=== PATIENT | female | born 1960 | race African-American/Black ===

== ENCOUNTER 2017-01-28 16:15 | Observation (INO) ==
[2017-01-28] MEDS ORDERED: ONDANSETRON 4 MG/2 ML VIAL IV STA ×3 (16:39→19:03)
[2017-01-28] MEDS ORDERED: hydrALAZINE 20 MG/1 ML VIAL IV STA ×2 (16:39→19:03)
[2017-01-28] MEDS ORDERED: MORPHINE 2 MG/1 ML SYRINGE IV STA ×2 (16:39→19:03)
[2017-01-28] MEDS ORDERED: ONDANSETRON 4 MG/2 ML VIAL ONE ×3 (16:42→19:26)
[2017-01-28] MEDS ORDERED: MORPHINE 2 MG/1 ML SYRINGE ONE (16:42)
[2017-01-28] MEDS ORDERED: hydrALAZINE 20 MG/1 ML VIAL ONE ×2 (16:55→19:21)
--- NOTE | 2017-01-28 17:04 | Emergency Department Note ---
Brooklynn Wei Brittany, am scribing for, and in the presence of, Lidya Morrissey DO 16: 47. IGhanshyam Debra, DO, personally performed the services described in this documentation, ascribed by Kaylyn Overton in my presence, and it is both accurate and complete [id number] . Arrival - Arrival Chief Complaint: Headache Stated Complaint: HEADACHE X 3 DAYS. VOMITING AND DIZZY ED Nursing Triage Note: Pt c/o JARQUIN x 3 days with Nausea and Dizziness. States that moving around makes the JARQUIN worse. Pt states she is not currently taking HTN medications. Mode of Arrival: Wheelchair Limitations: No Limitations Source: Patient Time Seen by Provider: 01/28/17 16:27 - History of Present Illness HPI Narrative: This is a 56 y/o obese black female,who presents to the ED with c/o dizziness and JARQUIN which started 3 days ago. She reports vomiting which started today. She reports she has a PMHx of IDDM. Pt reports she has not checked her BS in the past week, but took her insulin yesterday. She states she has HTN as well, but is not currently taking her BP at home or taking any medications for the HTN. Pt also complains of abd tenderness. PT has no other complaints/pain in the ED at this time. Pt has a PMHx of IDDM and HTN. Pt has had a hysterectomy and cholecystectomy. Pt denies a family medical Hx. Pt denies a social Hx. Onset (ago): day(s) (Started 3 days ago) Consistency: constant Severity: moderate Allergies/Adverse Reactions: Allergies Allergy/AdvReac Type Severity Reaction Status Date / Time No Known Allergies Allergy Unverified 05/18/15 18:08 Home Medications: Home Medications Medication Instructions Recorded Confirmed Type Insulin Aspart [NovoLOG FlexPen] 4 unit SUBCUT TID 01/28/17 01/28/17 History Insulin Glargine,Hum.rec.anlog 60 unit SUBCUT BID 01/28/17 01/28/17 History [Lantus SoloStar] Review of System - Review of System 12 point system: reviewed and no additional remarkable complaints except as stated - Review of System Gastrointestinal: Present: abdominal pain, nausea, vomiting Neurological: Present: headache, vertigo (Dizziness) Medical,Surgical,& Family Hx - Medical History Cardio: History of: Hypertension Endocrine: History of: Diabetes Mellitus (IDDM) - Surgical History Abdominal Surgeries: Surgical HX of: Cholecystectomy Reproductive Surgeries: Surgical HX of;: Hysterectomy - Social History Smoking Status: Never smoker Exam Vital Signs: Vital Signs Temperature 97.7 F 01/28/17 16:30 Pulse Rate 84 01/28/17 18:10 Respiratory Rate 18 01/28/17 18:10 Blood Pressure 175/74 01/28/17 18:10 O2 Sat by Pulse Oximetry 100 01/28/17 16:30 - General General appearance: alert, in no apparent distress, obese - Head Head exam: Present: atraumatic, normocephalic, normal inspection - Eye Eye exam: Present: PERRL, EOMI, other (Pt's eyes are erythemous) - ENT ENT exam: Present: normal exam, normal oropharynx, mucous membranes moist - Neck Neck exam: Present: normal inspection, full ROM, trachea midline. Absent: tenderness, meningismus, lymphadenopathy, thyromegaly - Chest Chest inspection: Present: normal inspection, symmetric chest wall rise. Absent : tenderness, rash, abscess - Respiratory Respiratory exam: Present: normal lung sounds bilaterally. Absent: rales, respiratory distress, rhonchi, stridor, wheezes - Cardiovascular Cardiovascular exam: Present: regular rate, normal rhythm, normal heart sounds. Absent: murmur, rubs, gallop, clicks - Abdominal Exam Abdominal exam: Present: soft, tenderness (Mild diffuse abdomen tenderness), normal bowel sounds, other (Emesis noted to pt's shirt). Absent: distention, guarding, rebound, rigidity - Rectal Exam Rectal exam: Present: deferred - Extremities Exam Extremities exam: Present: full ROM (+1 Pitting Edema), normal capillary refill , pedal edema. Absent: tenderness, joint swelling, calf tenderness - Back Exam Back exam: Present: normal inspection, full ROM. Absent: tenderness, muscle spasm, rashes - Neurological Exam Neurological exam: Present: alert, oriented X3, CN II-XII intact. Absent: motor sensory deficit - Psychiatric Psychiatric exam: Present: normal affect, normal mood. Absent: depressed, agitated, anxious, flat affect, manic - Skin Skin exam: Present: warm, dry, intact, normal color. Absent: rash, cyanosis, diaphoresis, erythema, pallor, mottled Course Course Narrative: spoke with DR Mendes who will admit pt . for uncontrolled htn. pt had several episodes of nausea and headache rebound while in room. pt amenable to admission Results - Labs CBC & BMP: 01/28/17 16:45 01/28/17 16:45 Lab Results: I have reviewed the patients labs - EKG EKG results: interpreted by PEYTON, JOONL, sinus rhythm - Diagnostic Findings Procedure: Chest x-ray: report reviewed by me (Minimal atelectassi at the lung bases with overalpping soft tissue densitites. ), CT: report reviewed by me (CT brain without contrast: No acute intracranial abnormality is identified. Emptying sella with bilateral proptosis which can be assoicated with idiopathic intracranial hypertension. ) Disposition Clinical Impression: Headache, Uncontrolled hypertension Case discussed with: patient Disposition: Still a Patient Condition: Stable Time of Disposition: 19:08
[2017-01-28 17:05] LABS: Basophils % 0.4 % (0.0-0.8); Eosinophils # 0.1 10*3/uL (0.0-0.87); Eosinophils % 1.3 % (0.00-10.9); Hematocrit 39.5 VOL% (35.7-47.0); Hemoglobin 12.6 GM/DL (12.0-16.0); Immature Granulocytes % 0.4 %; Immature Granulocytes Absolute 0.02 #; Lymphocytes # 1.8 10*3/uL (1.4-4.0); Lymphocytes % 32.5 % (21.3-54.2); Mean Corpuscular HGB Conc 31.9 GM/DL (32-36); Mean Corpuscular Hemoglobin 23 PG (27-34); Mean Corpuscular Volume 72.6 FL (87-102); Mean Platelet Volume 11.2 FL (9.6-12.0); Monocytes # 0.4 10*3/uL (0.11-0.8); Monocytes % 7.4 % (1.7-12.7); Neutrophils # 3.2 10*3/uL (1.4-7.4); Platelet Count 277 T/CUMM (130-400); Red Blood Count 5.44 MC/CUMM (3.8-5.5); Red Cell Distribution Width 14.3 % (9.3-17.3); White Blood Count 5.4 T/CUMM (4-12)
--- NOTE | 2017-01-28 17:23 | CT Report ---
Referring physician: Lidya Morrissey DO Exam: CT brain without contrast Date: 01/28/2017 Comparison: None Reason: Headache Technique: Axial images of the head were obtained without the use of contrast. Total DLP was 1073.10 mGy*cm. Findings: No hydrocephalus or midline shift is present. There is no evidence of an acute infarction, recent intracranial hemorrhage or abnormal mass effect. Empty sella. The osseous structures appear intact. The mastoid air cells and visualized paranasal sinuses are clear. Bilateral proptosis. Impression: No acute intracranial abnormality is identified. Emptying sella with bilateral proptosis which can be associated with idiopathic intracranial hypertension. The CT exam was performed using one or more of the following dose reduction techniques: Automated exposure control and adjustment of the mA and/or kV according to patient size. PROCEDURE INTERPRETED AT [facility] DEPARTMENT OF RADIOLOGY Final Report Signed by: Dr. Carolina Bales
--- NOTE | 2017-01-28 17:24 | XRay Report ---
Portable chest Date: 01/28/2017 Clinical history: Shortness of breath Comparison: 06/21/2015 Technique: Portable AP sitting chest Findings: The heart is normal in size. Minimal atelectasis at the lung bases. Overlapping soft tissues with artifactual densities from the patient's clothing. Unremarkable mediastinum with degenerative changes. Impression: Minimal atelectasis at the lung bases with overlapping soft tissue densities. PROCEDURE INTERPRETED AT [facility] DEPARTMENT OF RADIOLOGY Final Report Signed by: Dr. Carolina Bales
[2017-01-28 17:26] LABS: Alanine Aminotransferase 31 U/L (13-56); Albumin 2.9 G/DL (3.4-5.0); Alkaline Phosphatase 100 U/L (45-117); Aspartate Amino Transferase 21 U/L (0-37); Blood Urea Nitrogen 7 MG/DL (7-18); Calcium 9.1 MG/DL (8.5-10.1); Glucose 132 MG/DL (74-106); Osmolality,Calculated 276.5 MOS/KG (273-304); Potassium 3.4 MMOL/L (3.5-5.1); Sodium 139 MMOL/L (136-145); Total Protein 7.8 G/DL (6.4-8.3); Troponin I Only < 0.015 NG/ML (0.00-0.045)
[2017-01-28] MEDS ORDERED: HYDROmorphone 2 MG/1 ML VIAL IV STA (17:29)
[2017-01-28] MEDS ORDERED: HYDROmorphone 2 MG/1 ML VIAL ONE (17:36)
[2017-01-28] MEDS ORDERED: cloNIDine 0.1 MG TABLET PO STA ×2 (18:15→18:18)
[2017-01-28] MEDS ORDERED: cloNIDine 0.1 MG TABLET ONE (18:18)
[2017-01-28] MEDS ORDERED: DEXTROSE 50% 25 GM/50 ML VIAL IV PRN (19:12)
[2017-01-28] MEDS ORDERED: ONDANSETRON 4 MG/2 ML VIAL IV PRN (19:12)
[2017-01-28] MEDS ORDERED: GLUCAGON 1 MG VIAL IM PRN (19:12)
[2017-01-28] MEDS ORDERED: ACETAMINOPHEN 325 MG TABLET PO PRN (19:12)
[2017-01-28] MEDS ORDERED: MORPHINE 2 MG/1 ML SYRINGE IV PRN (19:12)
[2017-01-28] MEDS ORDERED: SODIUM CHLORIDE 0.9% 1,000 ML IV SCH (19:30)
[2017-01-28] MEDS ORDERED: PROMETHAZINE 25 MG/1 ML VIAL ONE (20:28)
[2017-01-28] MEDS ORDERED: SODIUM CHLORIDE 0.9% IV ONE (20:33)
[2017-01-28] MEDS ORDERED: PROMETHAZINE IV ONE (20:33)
[2017-01-28] MEDS ORDERED: INSULIN REGULAR 100 UNIT/ML SUBCUT SCH (21:00)
[2017-01-28] MEDS ORDERED: hydrALAZINE 20 MG/1 ML VIAL IM PRN (21:30)
[2017-01-28] MEDS ORDERED: KETOROLAC 15 MG/1 ML VIAL IV PRN (21:33)
--- NOTE | 2017-01-28 22:18 | XRay Report ---
Exam: XR KUB Date: 01/28/2017 9:28 PM Comparison: None Indication: Generalized abdominal pain with possible SBO Technique:[Supine abdomen] Findings: Nonobstructive bowel gas pattern. Increased fecal material. Prior cholecystectomy. Relative elevation of the right hemidiaphragm. Postoperative findings of the pelvis with degenerative changes. Impression: Nonobstructive bowel gas pattern. Increased fecal material consistent with constipation. Prior cholecystectomy. PROCEDURE INTERPRETED AT [facility] DEPARTMENT OF RADIOLOGY Final Report Signed by: Dr. Carolina Bales
[2017-01-28] MEDS: SODIUM CHLORIDE 0.9% 1,000 ML IV SCH (23:04)
[2017-01-29] MEDS: DOCUSATE SODIUM 100 MG CAPSULE PO SCH ×3 (01:08→22:00)
[2017-01-29] MEDS: LISINOPRIL 10 MG TABLET PO SCH ×3 (01:08→21:56)
[2017-01-29] MEDS: cloNIDine 0.1 MG TABLET PO SCH ×3 (01:47→21:56)
[2017-01-29] MEDS: INSULIN REGULAR 100 UNIT/ML SUBCUT SCH ×4 (01:48→21:55)
--- NOTE | 2017-01-29 08:12 | EKG Report ---
Stationary ECG Study [facility] Test Date: 01/28/2017 5:45:58 PM Pat Name: RAMON GONCALVES Department: Room: 545 Gender: F Chief Science Officer: HARSH : 1960 Requested by: Lidya Morrissey Order Number: [id number] Reading MD: HARSHAD ARMSTRONG Intervals [place] Rate: 95 P: 79 [place]: 163 QRS: 67 QRSD: 78 T: 30 QT: 359 QTc: 411 Interpretive Statements SINUS RHYTHM NONSPECIFIC T-WAVE ABNORMALITY Electronically Signed On 02-03-17 10:38:36 CDT by HARSHAD ARMSTRONG [email or web address]
[2017-01-29] MEDS: PANTOPRAZOLE 40 MG TABLET PO SCH (08:52)
[2017-01-29] MEDS ORDERED: INSULIN LISPRO 100 UNIT/ML SUBCUT SCH (09:00)
--- NOTE | 2017-01-29 09:04 | Internal Med History&Physical ---
Assessment and Plan (1) Uncontrolled hypertension Status: Acute Assessment and plan: 56-year-old female admitted to acute care * Uncontrolled hypertension. This is partly secondary to not taking her medications on regular basis. She has been taking nonsteroidals for headaches. Will start her back on her medications. Will add medications as needed * Headaches. Probably related to the uncontrolled hypertension. Differential diagnosis include tension headaches versus migraines. It is mainly on the left side of the head. It is associated with some vision changes. She has history of diabetic retinopathy. Will consult ophthalmology. Will also consult neurology to evaluate. Will start her on Elavil * Diabetes. Will continue her on insulin. Will start her on a sliding scale * GERD. Will start her on Protonix * Discussed with patient and her mother. Current Visit: Yes (2) Diabetes Status: Acute Current Visit: Yes (3) GERD (gastroesophageal reflux disease) Status: Acute Current Visit: Yes (4) Vomiting Status: Acute Current Visit: Yes (5) Headache Status: Acute Current Visit: Yes History of Present Illness Chief complaint: Headaches for several days associated with nausea and vomiting History of present illness: Ms. Paris is a 56 year old female with history of multiple medical problems including essential hypertension, diabetes, obesity, depression, obstructive sleep apnea. She presented with a several day history of headaches which is mainly on the left side of the head going into her episcopal region. This is associated with nausea and vomiting. She has been taking some Aleve and over- the-counter nonsteroidals for headaches. He denies any chest pain or shortness of breath. She denies any diarrhea. Her blood pressure was found to be quite elevated in the emergency room. She was not taking her blood pressure medications. He was evaluated with a CT brain and x-rays which was negative. Patient has been admitted for further evaluation and treatment. She has been noncompliant with her medications including blood pressure medicines and metformin. She lives at home with her . She used to smoke in the past. Home Medications Medication Instructions Recorded Confirmed Type Insulin Aspart [NovoLOG FlexPen] 4 unit SUBCUT TID 01/28/17 01/28/17 History Insulin Glargine,Hum.rec.anlog 60 unit SUBCUT BID 01/28/17 01/28/17 History [Lantus SoloStar] Allergies Allergy/AdvReac Type Severity Reaction Status Date / Time No Known Allergies Allergy Unverified 05/18/15 18:08 Medical,Surgical,& Family Hx - Medical History Cardio: History of: Hypertension Psychological: History of: Depression Neurology: History of: Migraine Endocrine: History of: Diabetes Mellitus (IDDM) Gastrointestinal: History of: GERD - Surgical History Thoracic Surgeries: Patient denies;: Organ Transplant Abdominal Surgeries: Surgical HX of: Cholecystectomy Reproductive Surgeries: Surgical HX of;: Hysterectomy Additional Surgical History: History of ectopic with laparotomy. Perianal fistula repair - Family History Family History: Reports;: Family Diabetes, Family Hypertension - Social History Smoking Status: Former smoker Frequency of Alcohol Use: None Type of Drug Use: None Marital Status: Lives With:: Spouse Functional capacity: independent ambulation 12 point system: reviewed and no additional remarkable complaints except as stated (As mentioned in HPI) Exam - Constitutional Vitals: Period Temp Pulse Resp BP Sys/Mann Pulse Ox Last 24 Hr 97.6 F-98.8 F 96-108 18-20 150-201/75-101 96-100 Exam: Examination: GENERAL: Morbidly obese -Greek female who is in no acute distress HEENT: PERRLA. EOMI. Mucous membranes are moist. Tenderness over left temporal area NECK: Neck is supple. No JVD. No carotid bruit. No thyromegaly. CVS: Regular rate and rhythm. S1 and S2 are normal. RESPIRATORY: Lungs are clear. No rales or rhonchi. ABDOMEN: Soft and nontender. Bowel sounds are present. No hepatosplenomegaly. EXT: No edema. Peripheral pulses are present. PHOTOVOLTAIC TECHNICIAN: Patient is awake, alert and oriented to time place and person. Cranial nerves II through XII are grossly intact. Motor strength is 5 over 5 both upper and lower extremities. SKIN: Warm and dry. MSK: No obvious deformity. Results - Labs CBC & BMP: 01/28/17 16:45 01/28/17 16:45 Lab Results: I have reviewed the past 24 hour labs
[2017-01-29 09:23] LABS: Basophils % 0.2 % (0.0-0.8); Eosinophils % 0.5 % (0.00-10.9); Hematocrit 38.6 VOL% (35.7-47.0); Immature Granulocytes % 0.3 %; Immature Granulocytes Absolute 0.02 #; Lymphocytes # 1.5 10*3/uL (1.4-4.0); Lymphocytes % 23.9 % (21.3-54.2); Mean Corpuscular HGB Conc 31.1 GM/DL (32-36); Mean Corpuscular Hemoglobin 23 PG (27-34); Mean Corpuscular Volume 75.1 FL (87-102); Mean Platelet Volume 10.9 FL (9.6-12.0); Monocytes # 0.4 10*3/uL (0.11-0.8); Neutrophils # 4.2 10*3/uL (1.4-7.4); Neutrophils % 68.1 % (38.7-73.9); Platelet Count 274 T/CUMM (130-400); Red Blood Count 5.14 MC/CUMM (3.8-5.5); Red Cell Distribution Width 14.3 % (9.3-17.3); White Blood Count 6.1 T/CUMM (4-12)
[2017-01-29 09:42] LABS: Calcium 8.6 MG/DL (8.5-10.1); Osmolality,Calculated 278.4 MOS/KG (273-304); Potassium 3.6 MMOL/L (3.5-5.1)
[2017-01-29 09:53] LABS: Folate 15.6 NG/ML (5.4-24.0)
[2017-01-29 10:29] LABS: Sedimentation Rate-Westergren 65 MM/HR (0-30)
[2017-01-29] MEDS: INSULIN GLARGINE 100 UNIT/ML SUBCUT SCH ×2 (10:47→21:57)
[2017-01-29] MEDS: INSULIN LISPRO 100 UNIT/ML SUBCUT SCH ×2 (12:11→17:44)
--- NOTE | 2017-01-29 14:31 | Neurology Consult Note ---
History of Present Illness History of present illness: Ms. Paris is a 56 year right-handed -[place] lady with past medical history significant for hypertension, diabetes presents today for the evaluation of headaches. Patient reported she has been having headaches for the last 2 years. Her headache frequency is 1-2 in 2 weeks. She also gets some sharp pains 1-2 per week. She takes Loly aspirin for her pain most of the time. She also gets lower back pain. A CT of the brain reveals empty sella syndrome. She denies any blurred vision as such. She came in last night she has significantly high blood pressure. She denies any tingling numbness and weakness. She does get migraine headaches but never takes any preventive treatment. Home Medications Medication Instructions Recorded Confirmed Type Insulin Aspart [NovoLOG FlexPen] 4 unit SUBCUT TID 01/28/17 01/28/17 History Insulin Glargine,Hum.rec.anlog 60 unit SUBCUT BID 01/28/17 01/28/17 History [Lantus SoloStar] Lisinopril 10 mg PO DAILY 01/29/17 01/29/17 History Meloxicam 15 mg PO DAILY 01/29/17 01/29/17 History Metformin HCl 1,000 mg PO BID W/MEALS 01/29/17 01/29/17 History Allergies Allergy/AdvReac Type Severity Reaction Status Date / Time No Known Allergies Allergy Unverified 05/18/15 18:08 12 point system: reviewed and no additional remarkable complaints except as stated Medical,Surgical,& Family Hx - Medical History Cardio: History of: Hypertension Psychological: History of: Depression No history of: Anxiety Disorders, ADHD, Behavior Problems, Bipolar Disorder, Previous Suicide Attempt, Psychiatric/Substance Abuse Tx, Schizophrenia, Violent Behavior, Psychiatric Problems Neurology: History of: Migraine Endocrine: History of: Diabetes Mellitus (IDDM) Gastrointestinal: History of: GERD - Surgical History Thoracic Surgeries: Patient denies;: Organ Transplant Abdominal Surgeries: Surgical HX of: Cholecystectomy Reproductive Surgeries: Surgical HX of;: Hysterectomy - Family History Family History: Reports;: Family Diabetes, Family Hypertension - Social History Smoking Status: Former smoker Frequency of Alcohol Use: None Type of Drug Use: None Exam - Constitutional Vitals: Period Temp Pulse Resp BP Sys/Mann Pulse Ox Last 24 Hr 97.6 F-98.8 F 95-108 18-20 150-201/71-101 96-100 Exam: GENERAL: Patient is in no acute distress. NECK: Neck is supple. There is no JVD. No carotid bruits present. No thyroid masses. CVS: First and second heart sounds are normal. There is no S3 present. Regular rate and rhythm. RESPIRATORY: Lungs are clear to auscultation without any rales or rhonchi. ABDOMEN: Soft and non-tender. Bowel sounds are present. There is no hepatosplenomegaly. EXT: There is no palpable edema. Peripheral pulses are present. Skin: No rashes Central Nervous system: General: Alert, awake and Oriented x 3 Speech: Fluent Comprehension: Intact and normal Facial expressions: Normal Cranial Nerves: CN1/Olfactory: Normal CN II/ Optic: Normal, Visual Roger unreliable CN III, and : MYLA & EOMI CN V: Normal & intact CN VII: face is symmetric CNVIII: Normal CN XI/X/XI/XII: Intact and Normal Motor: Bulk and Tone is normal. Strength in the right 5/5 Strength in the left 5/5 Sensory: Grossly intact for all the modalities of PP, LT and temp sense Reflexes: 1+ and symmetrical Cerebellar function: Normal finger to nose and heel to middleton testing. Toes: Equivocal Gait: Normal heel to heel and toe to toe and tandem walk. Results - Labs CBC & BMP: 01/29/17 09:08 01/29/17 09:08 Assessment and Plan (1) Chronic migraine Status: Acute Assessment and plan: Patient has already been started on Elavil. Continue Elavil for now Geodon 20 mg IM 1 dose now MRI of the brain without contrast Current Visit: Yes (2) Empty sella Status: Acute Assessment and plan: LP under fluoroscopy to rule out pseudotumor Current Visit: Yes
[2017-01-29] MEDS ORDERED: ZIPRASIDONE 20 MG/1 ML VIAL IM ONE (14:32)
[2017-01-29] MEDS: SODIUM CHLORIDE 0.9% 1,000 ML IV SCH (17:45)
[2017-01-29] MEDS: AMITRIPTYLINE 25 MG TABLET PO SCH (21:56)
[2017-01-30] MEDS: INSULIN REGULAR 100 UNIT/ML SUBCUT SCH ×4 (00:57→21:07)
[2017-01-30] MEDS: SODIUM CHLORIDE 0.9% 1,000 ML IV SCH ×2 (00:57→17:39)
[2017-01-30] MEDS: INSULIN LISPRO 100 UNIT/ML SUBCUT SCH ×3 (08:41→17:38)
[2017-01-30 08:44] LABS: PT Patient Result 10.3 SECS
--- NOTE | 2017-01-30 11:14 | Magnetic Resonance Report ---
Exam: MR head/brain wo con Date: 01/30/2017 2:33 PM Comparison: 09/16/2012 Indication: New onset headache Technical: 1.5 Angie magnet Axial T1 pre-and, ADC, DWI, FLAIR, gradient echo and FSE T2 Sagittal T1 precontrast, FLAIR Coronal FSE T2 Contrast: 0 cc Dotarem Findings: Exam reveals no acute ADC/ diffusion imaging. The brainstem, cerebellum exhibit normal signal characteristics. The cerebral hemispheres exhibit normal signal characteristics. The corpus callosum is unremarkable. Small defect persists in the high vertex along the falx cerebra unchanged from previous exam The seventh and eighth cranial nerves and cerebral pontine angles are intact. The pituitary gland reveals component of intrasella syndrome infundibulum and optic chiasm are intact. The paranasal sinuses exhibit normal signal characteristics. The mastoid sinuses are unremarkable. The globes and intra-and extraconal spaces are unremarkable. Impression: 1. No acute hemorrhage, infarction or mass effect present. 2. 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 3. Findings similar to and unchanged compared to the previous study from 2011 PROCEDURE INTERPRETED AT [facility] DEPARTMENT OF RADIOLOGY Final Report Signed by: Dr. Matthew Morris
--- NOTE | 2017-01-30 11:53 | Post Interventional Procedure ---
Pre-op diagnosis: Pseudotumor cerebri. New-onset headache Post-op diagnosis: same Procedure: Fluoroscopy guided lumbar puncture Flouroscopy: 0.7 minutes Radiologist: Tram Sommers Information Systems Auditor: Yoshi Hood Anesthesia: local Specimens: other (csf sent to lab) Estimated blood loss: none Complications: none Condition: stable Description/Findings: Formal timeout was performed. The patient was placed prone on the fluoroscopy table. The low back was prepped and draped in a sterile fashion. A midline lumbar puncture was then performed at the L3-L4 interspace using a 20-gauge spinal needle by this radiologist. Fluoroscopic guidance was used and a captured image documents the needle position. An opening pressure of 8 cm water was obtained. 8 cc clear, colorless CSF was withdrawn and sent to laboratory. Closing pressure was 4 cm water. Needle was removed and a bandage placed the puncture site. Assessment and Plan - Time spent with patient Time spent with patient: Less than 30 minutes
--- NOTE | 2017-01-30 11:58 | Interventional Radiology Rpt ---
History: Pseudotumor cerebri. New-onset headache Date: 01/30/2017 Study: Fluoroscopy guided lumbar puncture Comparison exam: No previous Lumbar puncture with fluoroscopy Description: Formal timeout was performed. The patient was placed prone on the fluoroscopy table. The low back was prepped and draped in a sterile fashion. A midline lumbar puncture was then performed at the L3-L4 interspace using a 20-gauge spinal needle by this radiologist. Fluoroscopic guidance was used and a captured image documents the needle position. An opening pressure of 8 cm water was obtained. 8 cc clear, colorless CSF was withdrawn and sent to laboratory. Closing pressure was 4 cm water. Needle was removed and a bandage placed the puncture site. Fluoroscopy time: 0.7 minutes Fluoroscopic images captured and archived: 1. Impression: Lumbar puncture as described. PROCEDURE INTERPRETED AT [facility] DEPARTMENT OF RADIOLOGY Final Report Signed by: Dr. Tram Sommers
[2017-01-30] MEDS: LISINOPRIL 10 MG TABLET PO SCH ×2 (12:18→21:09)
[2017-01-30] MEDS: DOCUSATE SODIUM 100 MG CAPSULE PO SCH ×2 (12:18→21:09)
[2017-01-30] MEDS: cloNIDine 0.1 MG TABLET PO SCH ×2 (12:18→21:09)
[2017-01-30] MEDS: PANTOPRAZOLE 40 MG TABLET PO SCH (12:20)
[2017-01-30 12:29] LABS: Glucose,CSF 87 MG/DL (40-70)
[2017-01-30 12:30] LABS: Appearance,CSF Clear; Lymphocytes,CSF 50 %; Neutrophils,CSF 50 %; Red Blood Cell,CSF 7 C/CUMM; White Blood Cell,CSF 7 C/CUMM
[2017-01-30] MEDS: INSULIN GLARGINE 100 UNIT/ML SUBCUT SCH ×2 (14:48→21:08)
--- NOTE | 2017-01-30 14:50 | Neurology Progress Note ---
Neurology - PN : Subjective Interval history: Patient seems to be doing better. Headaches are much better. MRI of the brain revealed empty sella syndrome. Spinal tap done revealed no significant abnormalities. Opening pressure was 8. CSF findings are nonspecific. Exam (Progress Note) - Constitutional Vitals: Period Temp Pulse Resp BP Sys/Mann Pulse Ox Last 24 Hr 97.9 F-98.4 F 81-90 16-20 132-153/69-84 95-100 Exam: GENERAL: Patient is in no acute distress. NECK: Neck is supple. There is no JVD. No carotid bruits present. No thyroid masses. CVS: First and second heart sounds are normal. There is no S3 present. Regular rate and rhythm. RESPIRATORY: Lungs are clear to auscultation without any rales or rhonchi. ABDOMEN: Soft and non-tender. Bowel sounds are present. There is no hepatosplenomegaly. EXT: There is no palpable edema. Peripheral pulses are present. Skin: No rashes Central Nervous system: General: Alert, awake and Oriented x 3 Speech: Fluent Comprehension: Intact and normal Facial expressions: Normal Cranial Nerves: CN1/Olfactory: Normal CN II/ Optic: Normal, Visual Roger unreliable CN III, and : MYLA & EOMI CN V: Normal & intact CN VII: face is symmetric CNVIII: Normal CN XI/X/XI/XII: Intact and Normal Motor: Bulk and Tone is normal. Strength in the right 5/5 Strength in the left 5/5 Sensory: Grossly intact for all the modalities of PP, LT and temp sense Reflexes: 1+ and symmetrical Cerebellar function: Normal finger to nose and heel to middleton testing. Toes: Equivocal Gait: Not tested Results - Labs CBC & BMP: 01/29/17 09:08 01/29/17 09:08 Assessment and Plan (1) Chronic migraine Status: Acute Assessment and plan: Continue Elavil for now Thorazine 25 mg at bedtime 1 dose Current Visit: Yes (2) Empty sella Status: Acute Assessment and plan: No evidence of pseudotumor on LP. Patient has normal opening pressure. Current Visit: Yes
--- NOTE | 2017-01-30 16:43 | Internal Med Progress Note ---
Assessment and Plan (1) Uncontrolled hypertension Status: Acute Assessment and plan: 56-year-old female admitted to acute care * Uncontrolled hypertension. Blood pressure is better controlled. Continue current treatment * Headaches. Headaches are better on Elavil. Her sed rate was high. Waiting for report from ophthalmology. Patient had an empty sella. MRI noted. Her LP has nonspecific finding * Diabetes. Will continue her on insulin. * GERD. Will start her on Protonix * Discussed with patient and family. * Hopefully home in the morning Current Visit: Yes (2) Diabetes Status: Acute Current Visit: Yes (3) GERD (gastroesophageal reflux disease) Status: Acute Current Visit: Yes (4) Vomiting Status: Acute Current Visit: Yes (5) Headache Status: Acute Current Visit: Yes Internal Medicine - PN: Subj Interval history: She is feeling better. No chest pain or shortness of breath. Her headaches are better. She is complaining of hip pain off and on. Exam (Progress Note) - Constitutional Vitals: Period Temp Pulse Resp BP Sys/Mann Pulse Ox Last 24 Hr 97.3 F-98.4 F 74-90 16-20 132-158/69-84 95-100 Exam: Examination: GENERAL: No acute distress NECK: Neck is supple. CVS: Regular rate and rhythm. RESPIRATORY: Lungs are clear. ABDOMEN: Soft and nontender. EXT: No edema. Peripheral pulses are present. RESIDENT ASSISTANT: Nonfocal MSK: No obvious deformity. Results - Labs CBC & BMP: 01/29/17 09:08 01/29/17 09:08 Lab Results: I have reviewed the past 24 hour labs
[2017-01-30] MEDS ORDERED: chlorproMAZINE INJ 25 MG in SODIUM CHLORIDE 0.9% 100 ML IV ONE (21:00)
[2017-01-30] MEDS: AMITRIPTYLINE 25 MG TABLET PO SCH (21:09)
[2017-01-31] MEDS: INSULIN REGULAR 100 UNIT/ML SUBCUT SCH ×2 (02:18→09:26)
[2017-01-31] MEDS: SODIUM CHLORIDE 0.9% 1,000 ML IV SCH (05:40)
[2017-01-31 07:42] LABS: Calcium 7.9 MG/DL (8.5-10.1); Osmolality,Calculated 286.8 MOS/KG (273-304); Potassium 3.5 MMOL/L (3.5-5.1)
--- NOTE | 2017-01-31 08:21 | Discharge Summary ---
Hospital Course - Hospital Course Hospital Course: Patient is a 56-year-old female who was admitted to acute care. She has history of hypertension, diabetes, diabetic retinopathy, GERD and had headaches. It was felt that her headaches were secondary to elevated blood pressure. He had some features of migraine headaches. She was seen in consultation by Dr. Caraballo. He checked her MRI. Patient had an empty sella. She also had lumbar puncture done which showed nonspecific results. Her sed rate was elevated. She was sent over for ophthalmological examination. I do not have report from that. Her headaches are better on Elavil. She is ready to go home. She will be continued on her insulin. She has not been taking her Metformin. I will see her in office in 2-3 weeks. She can return to work on Friday Diagnosis - Discharge Diagnosis (1) Uncontrolled hypertension Status: Acute (2) Diabetes Status: Acute (3) GERD (gastroesophageal reflux disease) Status: Acute (4) Vomiting Status: Acute (5) Headache Status: Acute Specialty Discharge - Follow Up or Referrals Follow up with: Don Ayers MD [Physician] - (2-3 weeks) Discharge Plan - Discharge Data Disposition: Disch To Home/Self Care Condition at Discharge: Stable Discharge Diet: advance to your usual diet, diabetic diet Activity: resume usual activities as tolerated - Discharge Medications New Lisinopril [Prinivil] 10 mg PO BID #60 tablet Amitriptyline [Elavil] 25 mg PO BEDTIME #30 tablet cloNIDine TAB [Catapres Tab] 0.1 mg PO BID #60 tablet Continue Insulin Aspart [NovoLOG FlexPen] 4 unit SUBCUT TID Metformin HCl 1,000 mg PO BID W/MEALS Insulin Glargine,Hum.rec.anlog [Lantus SoloStar] 60 unit SUBCUT BID Discontinued Meloxicam 15 mg PO DAILY Lisinopril 10 mg PO DAILY - Follow Up or Referral Follow Up: Don Ayers MD [Physician] - (2-3 weeks) - Forms/Instructions Additional Discharge Instructions: Please call in the medications at discharge to the pharmacy. Appointment in 2-3 weeks with BMP. Exam - Constitutional Vitals: Period Temp Pulse Resp BP Sys/Mann Pulse Ox Last 24 Hr 97.3 F-98.1 F 74-85 16-20 115-159/51-77 96-100 Exam: Examination: GENERAL: No acute distress NECK: Neck is supple. CVS: Regular rate and rhythm. RESPIRATORY: Lungs are clear. ABDOMEN: Soft and nontender. EXT: No edema. Peripheral pulses are present. 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 Discharge Results Procedures and tests throughout hospitalization: Pending Orders 01/30/17 11:58 CSF Culture and Gram Stain Stat Fungal Culture w/ Prep Stat Meningitis Ags w/CSF Cult/Smea Stat 01/30/17 11:59 Cytology Request Stat 01/30/17 12:30 Herpes Simplex Virus,PCR,CSF Stat Viral Culture, Non-Respiratory Stat Labs on day of discharge: Labs from last 24 hours 01/31/17 01/31/17 01/30/17 06:30 06:29 17:33 INR PT Patient/Control Mix Sodium 144 Potassium 3.5 Chloride 107 Carbon Dioxide 29 Anion Gap 11.5 BUN 8 Creatinine 0.60 GFR Calculation 155 BUN/Creatinine Ratio 13.00 Glucose 144 H POC Glucose 158 H 219 H Calculated Osmolality 286.8 Calcium 7.9 L CSF Appearance CSF Color CSF WBC CSF RBC CSF Diff Total Count CSF Neutrophils CSF Lymphocytes CSF Glucose CSF Total Protein 01/30/17 01/30/17 01/30/17 12:17 10:45 07:54 INR 1.0 PT Patient/Control Mix 10.3 Sodium Potassium Chloride Carbon Dioxide Anion Gap BUN Creatinine GFR Calculation BUN/Creatinine Ratio Glucose POC Glucose 100 Calculated Osmolality Calcium CSF Appearance Clear CSF Color Colorless CSF WBC 7 CSF RBC 7 CSF Diff Total Count 6 CSF Neutrophils 50 CSF Lymphocytes 50 CSF Glucose 87 H CSF Total Protein 72 H DS: Provider Date of admission: 01/28/17 19:12 Primary care physician: . No PCP Attending physician on admission: Don Ayers MD Consults: 01/29/17 08:57 Consult to Physician [CONS] Routine Comment: intractable headaches Consulting Provider: Kurtis Caraballo Person Notified: fiona Date Notified: 01/29/17 Time Notified: 10:09 Consult Notification Comment: LEFT MESSAGE TO CALL ME BACK 01/29/17 10:35 Consult to Physician [CONS] Routine Comment: Consulting Provider: Consult to Specialist Group: Opthamology Person Notified: OCT Date Notified: 01/29/17 Time Notified: 10:37 01/30/17 16:44 Consult to [facility], Educator [CONS] Routine Reason for Marketing Finance Manager: Re-education Consult Comment: Uncontrolled diabetes Discharging clinician: Don Ayers MD
[2017-01-31] MEDS: cloNIDine 0.1 MG TABLET PO SCH (08:48)
[2017-01-31] MEDS: PANTOPRAZOLE 40 MG TABLET PO SCH (08:48)
[2017-01-31] MEDS: DOCUSATE SODIUM 100 MG CAPSULE PO SCH (08:48)
[2017-01-31] MEDS: LISINOPRIL 10 MG TABLET PO SCH (08:48)
[2017-01-31] MEDS: INSULIN LISPRO 100 UNIT/ML SUBCUT SCH (09:26)
[2017-01-31 10:02] VITALS: BP 139/69
[2017-01-31] MEDS: INSULIN GLARGINE 100 UNIT/ML SUBCUT SCH (10:13)
--- NOTE | 2017-01-31 11:45 | Pathology Report from [facility] ---
ACCESSION # : [id number] PATIENT NAME : Bonnie Paris ORDERING DR : KEISHA WHEATLEY MD CLINICAL HX: Pseudotumor Cerebri; New onset headache POST-OP DX: Same SPECIMEN INFO: Fluid,CSF - 2 ml's clear CLASS: I CLASS COMMENTS: No increased cellularity or atypical cells CLASS LEGEND: CLASS 0 Material inadequate for diagnosis because of (see comment) CLASS I Absence of atypical or abnormal cells CLASS II Atypical Cytology but no evidence of malignancy CLASS III Cytology suggestive of but not conclusive for malignancy CLASS IV Cytology strongly suggestive of malignancy CLASS V Cytology conclusive for malignancy SERVICE DATE: 01/30/2017 REPORT DATE: 01/31/2017 PATHOLOGIST: Gosia Zarate
--- NOTE | 2017-01-31 14:09 | Neurology Progress Note ---
Neurology - PN : Subjective Interval history: Patient seems to be doing really well. No more headaches reported. Feeling better Exam (Progress Note) - Constitutional Vitals: Period Temp Pulse Resp BP Sys/Mann Pulse Ox Last 24 Hr 97.4 F-98.1 F 76-85 16-18 115-159/51-77 96-99 Exam: GENERAL: Patient is in no acute distress. NECK: Neck is supple. There is no JVD. No carotid bruits present. No thyroid masses. CVS: First and second heart sounds are normal. There is no S3 present. Regular rate and rhythm. RESPIRATORY: Lungs are clear to auscultation without any rales or rhonchi. ABDOMEN: Soft and non-tender. Bowel sounds are present. There is no hepatosplenomegaly. EXT: There is no palpable edema. Peripheral pulses are present. Skin: No rashes Central Nervous system: General: Alert, awake and Oriented x 3 Speech: Fluent Comprehension: Intact and normal Facial expressions: Normal Cranial Nerves: CN1/Olfactory: Normal CN II/ Optic: Normal, Visual Roger unreliable CN III, and : MYLA & EOMI CN V: Normal & intact CN VII: face is symmetric CNVIII: Normal CN XI/X/XI/XII: Intact and Normal Motor: Bulk and Tone is normal. Strength in the right 5/5 Strength in the left 5/5 Sensory: Grossly intact for all the modalities of PP, LT and temp sense Reflexes: 1+ and symmetrical Cerebellar function: Normal finger to nose and heel to [place] testing. Toes: Equivocal Gait: Not tested Results - Labs CBC & BMP: 01/29/17 09:08 01/31/17 06:29 Assessment and Plan (1) Chronic migraine Status: Acute Assessment and plan: Continue Elavil for now (2) Empty sella Status: Acute Assessment and plan: No evidence of pseudotumor on LP. Patient has normal opening pressure. Specialty Discharge - Follow Up or Referrals Follow up with: Don Ayers MD [Physician] - 02/20/17 10:15 am (2-3 weeks)
== END 2017-01-31 10:50 | disposition home or self-care (01) ==
LOC: N.ED 16:15 → N.5E 16:15
PROVIDERS: ADMIT Internal Medicine; ATTEND Internal Medicine

== ENCOUNTER 2018-02-13 04:56 | Observation (INO) ==
[2018-02-13] MEDS ORDERED: ASPIRIN 325 MG TABLET PO STA (05:36)
[2018-02-13 05:50] LABS: PT Patient Result 10.1 SECS
[2018-02-13 05:52] LABS: Basophils % 0.3 % (0.0-0.8); Eosinophils # 0.1 10*3/uL (0.0-0.87); Eosinophils % 1.9 % (0.00-10.9); Hematocrit 34.4 VOL% (35.7-47.0); Hemoglobin 11.1 GM/DL (12.0-16.0); Immature Granulocytes % 0.4 %; Immature Granulocytes Absolute 0.03 #; Lymphocytes # 2.1 10*3/uL (1.4-4.0); Lymphocytes % 30.8 % (21.3-54.2); Mean Corpuscular HGB Conc 32.3 GM/DL (32-36); Mean Corpuscular Hemoglobin 24 PG (27-34); Mean Corpuscular Volume 73.8 FL (87-102); Monocytes # 0.5 10*3/uL (0.11-0.8); Neutrophils % 59.6 % (38.7-73.9); Platelet Count 250 T/CUMM (130-400); Red Blood Count 4.66 MC/CUMM (3.8-5.5); Red Cell Distribution Width 14.7 % (9.3-17.3); White Blood Count 6.7 T/CUMM (4-12)
[2018-02-13 06:15] LABS: Albumin 2.8 G/DL (3.4-5.0); Bilirubin,Total 0.5 MG/DL (0.2-1.0); Calcium 8.8 MG/DL (8.5-10.1); Osmolality,Calculated 288.7 MOS/KG (273-304); Potassium 3.7 MMOL/L (3.5-5.1); Total Protein 6.5 G/DL (6.4-8.3)
[2018-02-13] MEDS ORDERED: NITROGLYCERIN SL 0.4 MG TABLET SL PRN (06:58)
[2018-02-13] MEDS ORDERED: POTASSIUM CHLORIDE 20 MEQ TABLET PO PRN (07:43)
[2018-02-13] MEDS ORDERED: MAGNESIUM SULF RIDER 2 GM in PREMIX 1 EACH IV PRN (07:43)
[2018-02-13] MEDS ORDERED: ONDANSETRON 4 MG/2 ML VIAL IV PRN (07:43)
[2018-02-13] MEDS ORDERED: MORPHINE 4 MG/1 ML VIAL IV PRN (07:43)
[2018-02-13] MEDS ORDERED: ZALEPLON 5 MG CAPSULE PO PRN (07:43)
[2018-02-13] MEDS ORDERED: MAGNESIUM SULF RIDER 4 GM in PREMIX 1 EACH IV PRN (07:43)
[2018-02-13] MEDS ORDERED: SODIUM CHLORIDE 0.45% 1,000 ML IV SCH (08:00)
[2018-02-13 08:31] LABS: Risk Ratio 3.87; VLDL CHOLESTEROL 31.4 MG/DL
[2018-02-13 09:35] LABS: Troponin I Only < 0.015 NG/ML (0.00-0.045)
[2018-02-13] MEDS ORDERED: cloNIDine 0.1 MG TABLET PO SCH (09:52)
[2018-02-13] MEDS ORDERED: ENOXAPARIN 120 MG/0.8 ML SYRINGE SUBCUT ONE (10:03)
[2018-02-13] MEDS ORDERED: LISINOPRIL 10 MG TABLET ONE (10:03)
[2018-02-13] MEDS ORDERED: cloNIDine 0.1 MG TABLET ONE (10:03)
[2018-02-13] MEDS: PANTOPRAZOLE 40 MG TABLET PO SCH (10:18)
[2018-02-13] MEDS: LISINOPRIL 20 MG TABLET PO SCH ×2 (10:19→21:04)
[2018-02-13] MEDS: hydroCHLOROthiazide 25 MG TABLET PO SCH (10:19)
[2018-02-13] MEDS ORDERED: DEXTROSE 50% 25 GM/50 ML VIAL IV STA (10:35)
[2018-02-13] MEDS ORDERED: DEXTROSE 50% 25 GM/50 ML SYRINGE IV ONE (10:36)
[2018-02-13] MEDS: ENOXAPARIN 120 MG/0.8 ML SYRINGE SUBCUT SCH (10:47)
[2018-02-13] MEDS: MULTIVITAMIN (CENTRUM) TABLET PO SCH (10:47)
[2018-02-13] MEDS: POTASSIUM CHLORIDE 8 MEQ CAPSULE PO SCH ×2 (10:48→21:04)
[2018-02-13] MEDS: MELOXICAM 7.5 MG TABLET PO SCH (10:48)
[2018-02-13 13:25] LABS: Troponin I Only < 0.015 NG/ML (0.00-0.045)
[2018-02-13] MEDS: amLODIPine 5 MG TABLET PO SCH (14:47)
[2018-02-13 15:01] LABS: Troponin I Only < 0.015 NG/ML (0.00-0.045)
[2018-02-13] MEDS: INSULIN LISPRO 100 UNIT/ML SUBCUT SCH ×2 (16:48→21:08)
[2018-02-13] MEDS: CARVEDILOL 6.25 MG TABLET PO SCH (16:51)
[2018-02-13] MEDS: AMITRIPTYLINE 50 MG TABLET PO SCH (21:04)
[2018-02-13] MEDS: CIPROFLOXACIN 500 MG TABLET PO SCH (21:04)
[2018-02-13] MEDS: cloNIDine 0.1 MG TABLET PO SCH (21:04)
[2018-02-13] MEDS: INSULIN GLARGINE 100 UNIT/ML SUBCUT SCH (21:08)
[2018-02-13 23:05] LABS: Apearance,Urine CLEAR (Clear); Bacteria,Urine Occasional /HPF (Few); Bilirubin,Urine Negative (Negative); Blood, Urine Moderate mg/dL (Negative); Glucose,Urine (UA) Negative (Negative); Hyaline Casts,Urine 1 /LPF (0-3); Ketones,Urine Negative (Negative); Mucus,Urine Occasional /LPF (Occasional); Nitrite,Urine Negative (Negative); Protein,Urine 30 MG/DL; RBC,Urine 7 /HPF (0-4); Squamous Epithelial Cell,Urine Occasional /HPF (0-10); Urine Color Yellow (Yellow); Urine Specific Gravity 1.017 (1.001-1.035); Urine Urobilinogen < 2.0 EU/DL (0.2-1.0); WBC,Urine 7 /HPF (0-6)
[2018-02-14 05:03] LABS: Basophils % 0.4 % (0.0-0.8); Eosinophils # 0.2 10*3/uL (0.0-0.87); Eosinophils % 3.1 % (0.00-10.9); Hematocrit 32.4 VOL% (35.7-47.0); Hemoglobin 10.6 GM/DL (12.0-16.0); Immature Granulocytes % 0.4 %; Immature Granulocytes Absolute 0.02 #; Lymphocytes # 2.1 10*3/uL (1.4-4.0); Lymphocytes % 37.8 % (21.3-54.2); Mean Corpuscular HGB Conc 32.7 GM/DL (32-36); Mean Corpuscular Hemoglobin 24 PG (27-34); Mean Corpuscular Volume 73.8 FL (87-102); Mean Platelet Volume 11.6 FL (9.6-12.0); Monocytes # 0.4 10*3/uL (0.11-0.8); Neutrophils # 2.8 10*3/uL (1.4-7.4); Neutrophils % 51.3 % (38.7-73.9); Platelet Count 248 T/CUMM (130-400); Red Blood Count 4.39 MC/CUMM (3.8-5.5); Red Cell Distribution Width 14.5 % (9.3-17.3); White Blood Count 5.4 T/CUMM (4-12)
[2018-02-14 05:33] LABS: Calcium 8.3 MG/DL (8.5-10.1); Potassium 3.8 MMOL/L (3.5-5.1)
[2018-02-14] MEDS: MULTIVITAMIN (CENTRUM) TABLET PO SCH (09:58)
[2018-02-14] MEDS: LISINOPRIL 20 MG TABLET PO SCH ×2 (09:58→21:10)
[2018-02-14] MEDS: hydroCHLOROthiazide 25 MG TABLET PO SCH (09:59)
[2018-02-14] MEDS: PANTOPRAZOLE 40 MG TABLET PO SCH (09:59)
[2018-02-14] MEDS: CIPROFLOXACIN 500 MG TABLET PO SCH ×2 (09:59→21:10)
[2018-02-14] MEDS: CARVEDILOL 6.25 MG TABLET PO SCH ×2 (09:59→17:00)
[2018-02-14] MEDS: POTASSIUM CHLORIDE 8 MEQ CAPSULE PO SCH ×2 (09:59→21:09)
[2018-02-14] MEDS: cloNIDine 0.1 MG TABLET PO SCH ×3 (10:00→21:20)
[2018-02-14] MEDS: INSULIN GLARGINE 100 UNIT/ML SUBCUT SCH ×2 (10:00→21:08)
[2018-02-14] MEDS: amLODIPine 5 MG TABLET PO SCH (10:00)
[2018-02-14] MEDS: ASPIRIN EC 81 MG TABLET PO SCH (10:00)
[2018-02-14] MEDS: INSULIN LISPRO 100 UNIT/ML SUBCUT SCH ×4 (10:00→21:09)
[2018-02-14] MEDS: MELOXICAM 7.5 MG TABLET PO SCH (10:00)
[2018-02-14] MEDS: LINACLOTIDE 145 MCG CAPSULE PO SCH (10:00)
[2018-02-14] MEDS: ENOXAPARIN 120 MG/0.8 ML SYRINGE SUBCUT SCH (10:01)
[2018-02-14] MEDS: AMITRIPTYLINE 50 MG TABLET PO SCH (21:10)
[2018-02-15] MEDS ORDERED: NON-FORMULARY MEDICATION (Dulaglutide [Trulicity] 1.5 MG) SUBCUT SCH (07:47)
[2018-02-15] MEDS: PANTOPRAZOLE 40 MG TABLET PO SCH (10:31)
[2018-02-15] MEDS: MELOXICAM 7.5 MG TABLET PO SCH (10:31)
[2018-02-15] MEDS: LISINOPRIL 20 MG TABLET PO SCH ×2 (10:31→21:20)
[2018-02-15] MEDS: cloNIDine 0.1 MG TABLET PO SCH ×2 (10:31→17:16)
[2018-02-15] MEDS: LINACLOTIDE 145 MCG CAPSULE PO SCH (10:31)
[2018-02-15] MEDS: CIPROFLOXACIN 500 MG TABLET PO SCH ×2 (10:32→21:20)
[2018-02-15] MEDS: POTASSIUM CHLORIDE 8 MEQ CAPSULE PO SCH ×2 (10:32→21:20)
[2018-02-15] MEDS: ASPIRIN EC 81 MG TABLET PO SCH (10:32)
[2018-02-15] MEDS: hydroCHLOROthiazide 25 MG TABLET PO SCH (10:32)
[2018-02-15] MEDS: CARVEDILOL 6.25 MG TABLET PO SCH ×2 (10:32→17:16)
[2018-02-15] MEDS: amLODIPine 5 MG TABLET PO SCH (10:32)
[2018-02-15] MEDS: INSULIN GLARGINE 100 UNIT/ML SUBCUT SCH ×2 (10:33→21:20)
[2018-02-15] MEDS: ENOXAPARIN 120 MG/0.8 ML SYRINGE SUBCUT SCH (10:33)
[2018-02-15] MEDS: MULTIVITAMIN (CENTRUM) TABLET PO SCH (10:33)
[2018-02-15] MEDS: INSULIN LISPRO 100 UNIT/ML SUBCUT SCH ×4 (10:33→21:21)
[2018-02-15] MEDS ORDERED: POTASSIUM CHLORIDE RIDER 10 MEQ in PREMIX 1 EACH IV PRN (19:38)
[2018-02-15] MEDS ORDERED: diphenhydrAMINE CAP 25 MG CAPSULE PO ONE (19:38)
[2018-02-15] MEDS ORDERED: DIAZEPAM 5 MG TABLET PO ONE (19:38)
[2018-02-15] MEDS ORDERED: cloNIDine 0.1 MG TABLET PO PRN (19:40)
[2018-02-15] MEDS: AMITRIPTYLINE 50 MG TABLET PO SCH (21:22)
[2018-02-15] MEDS: SODIUM CHLORIDE 0.45% 1,000 ML IV SCH (21:22)
[2018-02-16] MEDS ORDERED: diphenhydrAMINE CAP 25 MG CAPSULE ONE (07:52)
[2018-02-16] MEDS ORDERED: DIAZEPAM 5 MG TABLET ONE (07:52)
[2018-02-16] MEDS: INSULIN LISPRO 100 UNIT/ML SUBCUT SCH ×4 (08:02→22:55)
[2018-02-16 08:20] LABS: Basophils % 0.2 % (0.0-0.8); Eosinophils # 0.1 10*3/uL (0.0-0.87); Eosinophils % 2.7 % (0.00-10.9); Hematocrit 33.9 VOL% (35.7-47.0); Hemoglobin 10.8 GM/DL (12.0-16.0); Immature Granulocytes % 0.2 %; Immature Granulocytes Absolute 0.01 #; Lymphocytes # 1.3 10*3/uL (1.4-4.0); Lymphocytes % 26.9 % (21.3-54.2); Mean Corpuscular HGB Conc 31.9 GM/DL (32-36); Mean Corpuscular Hemoglobin 24 PG (27-34); Mean Corpuscular Volume 73.9 FL (87-102); Mean Platelet Volume 10.8 FL (9.6-12.0); Monocytes # 0.4 10*3/uL (0.11-0.8); Monocytes % 8.8 % (1.7-12.7); Neutrophils % 61.2 % (38.7-73.9); Platelet Count 254 T/CUMM (130-400); Red Blood Count 4.59 MC/CUMM (3.8-5.5); Red Cell Distribution Width 14.3 % (9.3-17.3); White Blood Count 4.9 T/CUMM (4-12)
[2018-02-16] MEDS: POTASSIUM CHLORIDE 8 MEQ CAPSULE PO SCH ×2 (08:22→22:54)
[2018-02-16] MEDS: CARVEDILOL 6.25 MG TABLET PO SCH ×2 (08:22→18:10)
[2018-02-16] MEDS: LISINOPRIL 20 MG TABLET PO SCH ×2 (08:23→22:55)
[2018-02-16] MEDS: ASPIRIN EC 81 MG TABLET PO SCH (08:23)
[2018-02-16] MEDS: amLODIPine 5 MG TABLET PO SCH (08:23)
[2018-02-16] MEDS: PANTOPRAZOLE 40 MG TABLET PO SCH (08:23)
[2018-02-16] MEDS: LINACLOTIDE 145 MCG CAPSULE PO SCH (08:37)
[2018-02-16 08:46] LABS: Calcium 8.4 MG/DL (8.5-10.1); Osmolality,Calculated 283.3 MOS/KG (273-304); Potassium 3.9 MMOL/L (3.5-5.1)
[2018-02-16] MEDS ORDERED: HYDROmorphone 2 MG/1 ML VIAL ONE (09:37)
[2018-02-16] MEDS ORDERED: NITROGLYCERIN DRIP 50 MG/250 ML BOTTLE IV ONE (09:38)
[2018-02-16] MEDS ORDERED: MIDAZOLAM 2 MG/2 ML VIAL ONE (09:38)
[2018-02-16] MEDS ORDERED: VERAPAMIL 5 MG/2 ML VIAL ONE (09:38)
[2018-02-16] MEDS ORDERED: ENOXAPARIN 60 MG/0.6 ML SYRINGE ONE (09:54)
[2018-02-16] MEDS ORDERED: ENOXAPARIN 30 MG/0.3 ML SYRINGE ONE (09:54)
[2018-02-16] MEDS: INSULIN GLARGINE 100 UNIT/ML SUBCUT SCH ×2 (11:25→22:56)
[2018-02-16] MEDS: CIPROFLOXACIN 500 MG TABLET PO SCH ×2 (11:26→22:55)
[2018-02-16] MEDS: MULTIVITAMIN (CENTRUM) TABLET PO SCH (11:26)
[2018-02-16] MEDS: SODIUM CHLORIDE 0.45% 1,000 ML IV SCH (11:26)
[2018-02-16] MEDS: hydroCHLOROthiazide 25 MG TABLET PO SCH (16:27)
[2018-02-16] MEDS: MELOXICAM 7.5 MG TABLET PO SCH (16:27)
[2018-02-16] MEDS: AMITRIPTYLINE 50 MG TABLET PO SCH (22:55)
[2018-02-17] MEDS: SODIUM CHLORIDE 0.45% 1,000 ML IV SCH (02:18)
[2018-02-17 05:55] LABS: Basophils % 0.4 % (0.0-0.8); Eosinophils # 0.3 10*3/uL (0.0-0.87); Eosinophils % 5.7 % (0.00-10.9); Hematocrit 34.2 VOL% (35.7-47.0); Hemoglobin 10.8 GM/DL (12.0-16.0); Immature Granulocytes % 0.2 %; Immature Granulocytes Absolute 0.01 #; Lymphocytes # 1.5 10*3/uL (1.4-4.0); Lymphocytes % 28.4 % (21.3-54.2); Mean Corpuscular HGB Conc 31.6 GM/DL (32-36); Mean Corpuscular Hemoglobin 23 PG (27-34); Mean Platelet Volume 10.4 FL (9.6-12.0); Monocytes # 0.5 10*3/uL (0.11-0.8); Monocytes % 9.1 % (1.7-12.7); Neutrophils % 56.2 % (38.7-73.9); Platelet Count 249 T/CUMM (130-400); Red Blood Count 4.62 MC/CUMM (3.8-5.5); Red Cell Distribution Width 14.5 % (9.3-17.3); White Blood Count 5.3 T/CUMM (4-12)
[2018-02-17 06:45] LABS: Calcium 8.7 MG/DL (8.5-10.1); Osmolality,Calculated 284.3 MOS/KG (273-304)
[2018-02-17 07:37] VITALS: BP 167/70
[2018-02-17] MEDS ORDERED: CARVEDILOL 6.25 MG TABLET PO SCH (08:09)
[2018-02-17] MEDS ORDERED: amLODIPine 10 MG TABLET PO SCH (08:09)
[2018-02-17] MEDS: CARVEDILOL 6.25 MG TABLET PO SCH (08:14)
[2018-02-17] MEDS: INSULIN LISPRO 100 UNIT/ML SUBCUT SCH (09:39)
[2018-02-17] MEDS: MELOXICAM 7.5 MG TABLET PO SCH (09:40)
[2018-02-17] MEDS: INSULIN GLARGINE 100 UNIT/ML SUBCUT SCH (09:41)
[2018-02-17] MEDS: LISINOPRIL 20 MG TABLET PO SCH (09:41)
[2018-02-17] MEDS: MULTIVITAMIN (CENTRUM) TABLET PO SCH (09:41)
[2018-02-17] MEDS: CIPROFLOXACIN 500 MG TABLET PO SCH (09:41)
[2018-02-17] MEDS: LINACLOTIDE 145 MCG CAPSULE PO SCH (09:41)
[2018-02-17] MEDS: ASPIRIN EC 81 MG TABLET PO SCH (09:41)
[2018-02-17] MEDS: PANTOPRAZOLE 40 MG TABLET PO SCH (09:41)
[2018-02-17] MEDS: POTASSIUM CHLORIDE 8 MEQ CAPSULE PO SCH (09:42)
[2018-02-17] MEDS: hydroCHLOROthiazide 25 MG TABLET PO SCH (09:45)
== END 2018-02-17 11:51 | disposition home or self-care (01) ==
LOC: N.EDINP 04:56 → N.ED 04:56 → N.TELES 11:56
PROVIDERS: ADMIT Internal Medicine; ATTEND Internal Medicine
PROC: CLCCHCL (ICD-10-PCS; 2018-02-16 09:45)

== ENCOUNTER 2022-05-21 11:08 | Observation (INO) ==
[2022-05-21] MEDS ORDERED: ALUM/MAG/SIMETH/LIDO VISC 1:1 30 ML BOTTLE PO STA (11:59)
[2022-05-21] MEDS ORDERED: ALUM/MAG/SIMETH/LIDO VISC 1:1 30 ML BOTTLE PO ONE (12:00)
[2022-05-21 12:11] LABS: Basophils % 0.3 % (0.0-0.8); Eosinophils # 0.1 10*3/uL (0.0-0.87); Eosinophils % 1.9 % (0.00-10.9); Hematocrit 31.4 VOL% (35.7-47.0); Hemoglobin 9.7 GM/DL (12.0-16.0); Immature Granulocytes % 0.1 %; Immature Granulocytes Absolute 0.01 #; Lymphocytes # 1.8 10*3/uL (1.4-4.0); Lymphocytes % 26.2 % (21.3-54.2); Mean Corpuscular HGB Conc 30.9 GM/DL (32-36); Mean Corpuscular Volume 77.5 FL (87-102); Mean Platelet Volume 10.4 FL (9.6-12.0); Monocytes # 0.5 10*3/uL (0.11-0.8); Monocytes % 7.8 % (1.7-12.7); Neutrophils % 63.7 % (38.7-73.9); Platelet Count 284 T/CUMM (130-400); Red Blood Count 4.05 MC/CUMM (3.8-5.5); Red Cell Distribution Width 15.6 % (9.3-17.3); White Blood Count 6.8 T/CUMM (4-12)
[2022-05-21] MEDS ORDERED: KETOROLAC 30 MG/1 ML VIAL IV STA (12:24)
[2022-05-21 12:26] LABS: Albumin 3.3 G/DL (3.4-5.0); Bilirubin,Total 0.4 MG/DL (0.20-1.00); Calcium 9.2 MG/DL (8.5-10.1); Osmolality,Calculated 282.3 MOS/KG (273-304); Potassium 3.3 MMOL/L (3.5-5.1); Total Protein 7.3 G/DL (6.4-8.2)
[2022-05-21] MEDS ORDERED: GLUCAGON 1 MG VIAL IM PRN (14:15)
[2022-05-21] MEDS ORDERED: ACETAMINOPHEN 325 MG TABLET PO PRN (14:15)
[2022-05-21] MEDS ORDERED: ASPIRIN 325 MG TABLET PO STA (14:15)
[2022-05-21] MEDS ORDERED: ONDANSETRON 4 MG/2 ML VIAL IV PRN (14:15)
[2022-05-21] MEDS ORDERED: DEXTROSE 10% 250 ML BAG IV PRN (14:20)
[2022-05-21] MEDS ORDERED: cloNIDine 0.1 MG TABLET PO ONE (15:41)
[2022-05-21] MEDS ORDERED: cloNIDine 0.1 MG TABLET PO PRN (15:59)
[2022-05-21] MEDS ORDERED: GABAPENTIN 300 MG CAPSULE PO PRN (16:02)
[2022-05-21] MEDS ORDERED: METHOCARBAMOL 750 MG TABLET PO PRN (16:02)
[2022-05-21] MEDS ORDERED: traMADol 50 MG TABLET PO PRN (16:02)
[2022-05-21] MEDS ORDERED: PNEUMOCOCCAL VACCINE (23 VALENT) 0.5 ML VIAL IM ONE (16:04)
[2022-05-21] MEDS ORDERED: POTASSIUM CHLORIDE 20 MEQ TABLET PO ONE (16:39)
[2022-05-21] MEDS: INSULIN REGULAR 100 UNIT/ML SUBCUT SCH ×2 (16:46→21:27)
[2022-05-21] MEDS: INSULIN LISPRO 100 UNIT/ML SUBCUT SCH (16:47)
[2022-05-21] MEDS: hydrALAZINE 25 MG TABLET PO SCH ×2 (16:52→21:26)
[2022-05-21] MEDS: carvediloL 12.5 MG TABLET PO SCH (16:52)
[2022-05-21] MEDS: DOCUSATE SODIUM 100 MG CAPSULE PO SCH (21:23)
[2022-05-21] MEDS: PANTOPRAZOLE 40 MG TABLET PO SCH (21:23)
[2022-05-21] MEDS: INSULIN GLARGINE 100 UNIT/ML SUBCUT SCH (21:27)
[2022-05-21] MEDS: FUROSEMIDE 20 MG TABLET PO SCH (21:27)
[2022-05-22 06:19] LABS: Basophils % 0.4 % (0.0-0.8); Eosinophils # 0.1 10*3/uL (0.0-0.87); Eosinophils % 1.8 % (0.00-10.9); Hematocrit 27.9 VOL% (35.7-47.0); Hemoglobin 8.6 GM/DL (12.0-16.0); Immature Granulocytes % 0.5 %; Immature Granulocytes Absolute 0.03 #; Lymphocytes # 1.7 10*3/uL (1.4-4.0); Lymphocytes % 31.2 % (21.3-54.2); Mean Corpuscular HGB Conc 30.8 GM/DL (32-36); Mean Corpuscular Volume 77.3 FL (87-102); Mean Platelet Volume 10.3 FL (9.6-12.0); Monocytes # 0.4 10*3/uL (0.11-0.8); Monocytes % 7.3 % (1.7-12.7); Neutrophils % 58.8 % (38.7-73.9); Platelet Count 276 T/CUMM (130-400); Red Blood Count 3.61 MC/CUMM (3.8-5.5); Red Cell Distribution Width 15.6 % (9.3-17.3); White Blood Count 5.5 T/CUMM (4-12)
[2022-05-22 06:33] LABS: Osmolality,Calculated 292.6 MOS/KG (273-304); Potassium 3.6 MMOL/L (3.5-5.1)
[2022-05-22] MEDS: INSULIN REGULAR 100 UNIT/ML SUBCUT SCH ×4 (08:31→21:00)
[2022-05-22] MEDS: INSULIN LISPRO 100 UNIT/ML SUBCUT SCH ×3 (08:33→17:50)
[2022-05-22] MEDS ORDERED: PANTOPRAZOLE 40 MG TABLET PO SCH (09:00)
[2022-05-22] MEDS: INSULIN GLARGINE 100 UNIT/ML SUBCUT SCH ×2 (09:00→21:01)
[2022-05-22] MEDS: LINACLOTIDE 145 MCG CAPSULE PO SCH (11:25)
[2022-05-22] MEDS: FUROSEMIDE 20 MG TABLET PO SCH (11:26)
[2022-05-22] MEDS: hydrALAZINE 25 MG TABLET PO SCH ×3 (13:44→20:56)
[2022-05-22] MEDS: carvediloL 12.5 MG TABLET PO SCH ×2 (13:44→17:50)
[2022-05-22] MEDS: LORATADINE 10 MG TABLET PO SCH (14:40)
[2022-05-22] MEDS: PANTOPRAZOLE 40 MG TABLET PO SCH ×2 (14:40→20:56)
[2022-05-22] MEDS: ASPIRIN EC 81 MG TABLET PO SCH (14:40)
[2022-05-22] MEDS: DOCUSATE SODIUM 100 MG CAPSULE PO SCH ×2 (14:40→20:56)
[2022-05-22] MEDS: LISINOPRIL/HCTZ 20-12.5 MG TABLET PO SCH (14:41)
[2022-05-22] MEDS: FOLIC ACID 1 MG TABLET PO SCH (14:41)
[2022-05-22] MEDS ORDERED: DULAGLUTIDE 1.5 MG/0.5 ML SUBCUT SCH (16:02)
[2022-05-23 04:57] LABS: Basophils % 0.5 % (0.0-0.8); Eosinophils # 0.1 10*3/uL (0.0-0.87); Eosinophils % 2.4 % (0.00-10.9); Hematocrit 27.9 VOL% (35.7-47.0); Hemoglobin 8.6 GM/DL (12.0-16.0); Immature Granulocytes % 0.3 %; Immature Granulocytes Absolute 0.02 #; Lymphocytes # 1.7 10*3/uL (1.4-4.0); Lymphocytes % 28.6 % (21.3-54.2); Mean Corpuscular HGB Conc 30.8 GM/DL (32-36); Mean Corpuscular Volume 77.9 FL (87-102); Mean Platelet Volume 10.6 FL (9.6-12.0); Monocytes # 0.5 10*3/uL (0.11-0.8); Monocytes % 8.5 % (1.7-12.7); Neutrophils % 59.7 % (38.7-73.9); Platelet Count 260 T/CUMM (130-400); Red Blood Count 3.58 MC/CUMM (3.8-5.5); Red Cell Distribution Width 15.7 % (9.3-17.3); White Blood Count 5.9 T/CUMM (4-12)
[2022-05-23 07:30] LABS: Calcium 8.6 MG/DL (8.5-10.1); Osmolality,Calculated 292.8 MOS/KG (273-304); Potassium 3.5 MMOL/L (3.5-5.1)
[2022-05-23] MEDS: INSULIN REGULAR 100 UNIT/ML SUBCUT SCH ×2 (07:37→11:30)
[2022-05-23] MEDS: LINACLOTIDE 145 MCG CAPSULE PO SCH (07:37)
[2022-05-23] MEDS: carvediloL 12.5 MG TABLET PO SCH (07:38)
[2022-05-23] MEDS: INSULIN LISPRO 100 UNIT/ML SUBCUT SCH ×2 (07:38→11:45)
[2022-05-23] MEDS ORDERED: LACTATED RINGERS 1,000 ML IV SCH (08:00)
[2022-05-23] MEDS: FOLIC ACID 1 MG TABLET PO SCH (09:00)
[2022-05-23] MEDS: PANTOPRAZOLE 40 MG TABLET PO SCH (09:00)
[2022-05-23] MEDS: ASPIRIN EC 81 MG TABLET PO SCH (09:00)
[2022-05-23] MEDS: DOCUSATE SODIUM 100 MG CAPSULE PO SCH (09:00)
[2022-05-23] MEDS: LISINOPRIL/HCTZ 20-12.5 MG TABLET PO SCH (09:00)
[2022-05-23] MEDS: LORATADINE 10 MG TABLET PO SCH (09:00)
[2022-05-23] MEDS: hydrALAZINE 25 MG TABLET PO SCH ×2 (10:41→15:00)
[2022-05-23] MEDS: INSULIN GLARGINE 100 UNIT/ML SUBCUT SCH (10:41)
[2022-05-23] MEDS ORDERED: propofoL 200 MG/20 ML VIAL IV ONE (13:53)
[2022-05-23] MEDS ORDERED: LIDOCAINE 2% 5 ML VIAL ONE (13:53)
[2022-05-23 14:37] VITALS: BP 127/65
[2022-05-23] MEDS ORDERED: METHOTREXATE 2.5 MG TABLET PO SCH (18:00)
== END 2022-05-23 16:47 | disposition home or self-care (01) ==
LOC: N.ED 11:08 → N.EDINP 11:08 → N.2W 15:15
PROVIDERS: ADMIT Internal Medicine; ATTEND Internal Medicine

== ENCOUNTER 2022-10-07 17:19 | Observation (INO) ==
[2022-10-07] MEDS ORDERED: MORPHINE 2 MG/1 ML SYRINGE IV STA ×2 (19:38→21:18)
[2022-10-07] MEDS ORDERED: PANTOPRAZOLE 40 MG VIAL IV STA (19:38)
[2022-10-07] MEDS ORDERED: ALUM/MAG/SIMETH/LIDO VISC 1:1 30 ML BOTTLE PO STA (19:38)
[2022-10-07] MEDS ORDERED: SODIUM CHLORIDE 0.9% 1,000 ML IV STA (19:38)
[2022-10-07] MEDS ORDERED: ONDANSETRON 4 MG/2 ML VIAL IV STA (19:38)
[2022-10-07 20:00] LABS: Albumin 3.2 G/DL (3.4-5.0); Bilirubin,Total 0.7 MG/DL (0.20-1.00); Calcium 9.6 MG/DL (8.5-10.1); Osmolality,Calculated 288.3 MOS/KG (273-304); Potassium 4.1 MMOL/L (3.5-5.1); Total Protein 7.8 G/DL (6.4-8.2)
[2022-10-07 20:39] LABS: Hyaline Casts,Urine 4 /LPF (0-3); Mucus,Urine Occasional /LPF (Occasional); RBC,Urine 32 /HPF (0-4); Squamous Epithelial Cell,Urine Many /HPF (0-10)
[2022-10-07 20:40] LABS: Bilirubin,Urine Small mg/dL (Negative); Blood, Urine Trace mg/dL (Negative); Glucose,Urine (UA) Negative (Negative); Ketones,Urine 40 mg/dL (Negative); Nitrite,Urine Negative (Negative); Protein,Urine 100 mg/dL (Negative); Urine Appearance Clear (Clear); Urine Color Yellow (Yellow); Urine Specific Gravity > 1.030 (1.001-1.035)
[2022-10-07] MEDS ORDERED: MORPHINE 10 MG/1 ML VIAL IV STA (21:17)
[2022-10-07] MEDS ORDERED: SODIUM PHOSPHATE ENEMA 133 ML BOTTLE RECTAL STA (22:41)
[2022-10-08] MEDS ORDERED: PROMETHAZINE INJ 25 MG in SODIUM CHLORIDE 0.9% 50 ML IV STA (00:33)
[2022-10-08] MEDS ORDERED: PROMETHAZINE 25 MG/1 ML VIAL ONE (00:34)
[2022-10-08] MEDS ORDERED: ONDANSETRON 4 MG/2 ML VIAL IV STA (01:08)
[2022-10-08] MEDS ORDERED: ONDANSETRON 4 MG/2 ML VIAL IV PRN (03:06)
[2022-10-08] MEDS: OSELTAMIVIR 75 MG CAPSULE PO SCH ×2 (09:28→21:16)
[2022-10-08] MEDS: carvediloL 12.5 MG TABLET PO SCH ×2 (09:28→21:16)
[2022-10-08] MEDS: FLUCONAZOLE 100 MG TABLET PO SCH (09:28)
[2022-10-08] MEDS: PANTOPRAZOLE 40 MG VIAL IV SCH (09:28)
[2022-10-08] MEDS: cefTRIAXone 1,000 MG in SODIUM CHLORIDE 0.9% 100 ML IV SCH (09:29)
[2022-10-08] MEDS: SODIUM CHLORIDE 0.9% 1,000 ML IV SCH ×2 (09:29→22:58)
[2022-10-08 10:16] LABS: Basophils % 0.3 % (0.0-0.8); Eosinophils # 0.1 10*3/uL (0.0-0.87); Eosinophils % 0.8 % (0.00-10.9); Hematocrit 30.1 VOL% (35.7-47.0); Hemoglobin 9.2 GM/DL (12.0-16.0); Immature Granulocytes % 0.3 %; Immature Granulocytes Absolute 0.02 #; Lymphocytes # 1.5 10*3/uL (1.4-4.0); Lymphocytes % 23.7 % (21.3-54.2); Mean Corpuscular HGB Conc 30.6 GM/DL (32-36); Monocytes # 0.5 10*3/uL (0.11-0.8); Monocytes % 8.4 % (1.7-12.7); Neutrophils % 66.5 % (38.7-73.9); Platelet Count 277 T/CUMM (130-400); Red Blood Count 3.96 MC/CUMM (3.8-5.5); White Blood Count 6.3 T/CUMM (4-12)
[2022-10-08] MEDS: LISINOPRIL/HCTZ 20-12.5 MG TABLET PO SCH (10:21)
[2022-10-08 11:09] LABS: Calcium 9.1 MG/DL (8.5-10.1); Osmolality,Calculated 282.3 MOS/KG (273-304); Potassium 4.1 MMOL/L (3.5-5.1)
[2022-10-08] MEDS: INSULIN LISPRO 100 UNIT/ML SUBCUT SCH ×2 (12:10→17:31)
[2022-10-08] MEDS: NYSTATIN 500,000 UNIT/5 ML UDCUP SWISH/SWAL SCH ×3 (12:50→21:16)
[2022-10-09] MEDS: INSULIN LISPRO 100 UNIT/ML SUBCUT SCH ×6 (00:30→18:01)
[2022-10-09 05:23] LABS: Basophils % 0.2 % (0.0-0.8); Eosinophils # 0.1 10*3/uL (0.0-0.87); Eosinophils % 2.3 % (0.00-10.9); Hematocrit 28.4 VOL% (35.7-47.0); Hemoglobin 8.8 GM/DL (12.0-16.0); Immature Granulocytes % 0.2 %; Immature Granulocytes Absolute 0.01 #; Lymphocytes # 1.6 10*3/uL (1.4-4.0); Lymphocytes % 28.8 % (21.3-54.2); Mean Corpuscular Volume 75.7 FL (87-102); Mean Platelet Volume 9.6 FL (9.6-12.0); Monocytes # 0.4 10*3/uL (0.11-0.8); Monocytes % 7.2 % (1.7-12.7); Neutrophils % 61.3 % (38.7-73.9); Platelet Count 246 T/CUMM (130-400); Red Blood Count 3.75 MC/CUMM (3.8-5.5); Red Cell Distribution Width 15.9 % (9.3-17.3); White Blood Count 5.6 T/CUMM (4-12)
[2022-10-09 05:44] LABS: Calcium 8.7 MG/DL (8.5-10.1); Osmolality,Calculated 281.3 MOS/KG (273-304); Potassium 3.5 MMOL/L (3.5-5.1)
[2022-10-09] MEDS: OSELTAMIVIR 75 MG CAPSULE PO SCH ×2 (08:25→20:41)
[2022-10-09] MEDS: LISINOPRIL/HCTZ 20-12.5 MG TABLET PO SCH (08:25)
[2022-10-09] MEDS: carvediloL 12.5 MG TABLET PO SCH ×2 (08:25→20:41)
[2022-10-09] MEDS: FLUCONAZOLE 100 MG TABLET PO SCH (08:26)
[2022-10-09] MEDS: NYSTATIN 500,000 UNIT/5 ML UDCUP SWISH/SWAL SCH ×4 (08:26→20:41)
[2022-10-09] MEDS: PANTOPRAZOLE 40 MG VIAL IV SCH (08:28)
[2022-10-09] MEDS: cefTRIAXone 1,000 MG in SODIUM CHLORIDE 0.9% 100 ML IV SCH (08:31)
[2022-10-09] MEDS: LINACLOTIDE 145 MCG CAPSULE PO SCH (08:37)
[2022-10-09] MEDS ORDERED: GABAPENTIN 300 MG CAPSULE PO PRN (08:41)
[2022-10-09] MEDS: LORATADINE 10 MG TABLET PO SCH (10:12)
[2022-10-09] MEDS: INSULIN GLARGINE 100 UNIT/ML SUBCUT SCH ×2 (10:13→20:42)
[2022-10-09] MEDS: FUROSEMIDE 40 MG TABLET PO SCH ×2 (10:13→20:42)
[2022-10-09] MEDS: SODIUM CHLORIDE 0.9% 1,000 ML IV SCH (13:04)
[2022-10-10] MEDS: INSULIN LISPRO 100 UNIT/ML SUBCUT SCH ×3 (00:19→08:54)
[2022-10-10] MEDS: SODIUM CHLORIDE 0.9% 1,000 ML IV SCH (02:04)
[2022-10-10 03:54] LABS: Basophils % 0.1 % (0.0-0.8); Eosinophils # 0.1 10*3/uL (0.0-0.87); Eosinophils % 1.5 % (0.00-10.9); Hematocrit 29.7 VOL% (35.7-47.0); Hemoglobin 9.1 GM/DL (12.0-16.0); Immature Granulocytes % 0.4 %; Immature Granulocytes Absolute 0.03 #; Lymphocytes # 1.8 10*3/uL (1.4-4.0); Lymphocytes % 27.2 % (21.3-54.2); Mean Corpuscular HGB Conc 30.6 GM/DL (32-36); Mean Platelet Volume 10.1 FL (9.6-12.0); Monocytes # 0.4 10*3/uL (0.11-0.8); Monocytes % 5.8 % (1.7-12.7); Platelet Count 285 T/CUMM (130-400); Red Blood Count 3.96 MC/CUMM (3.8-5.5); White Blood Count 6.8 T/CUMM (4-12)
[2022-10-10 04:23] LABS: Calcium 8.8 MG/DL (8.5-10.1); Osmolality,Calculated 283.3 MOS/KG (273-304); Potassium 3.6 MMOL/L (3.5-5.1)
[2022-10-10 08:30] VITALS: BP 148/64
[2022-10-10] MEDS: LORATADINE 10 MG TABLET PO SCH (08:55)
[2022-10-10] MEDS: carvediloL 12.5 MG TABLET PO SCH (08:55)
[2022-10-10] MEDS: NYSTATIN 500,000 UNIT/5 ML UDCUP SWISH/SWAL SCH (08:55)
[2022-10-10] MEDS: LINACLOTIDE 145 MCG CAPSULE PO SCH (08:55)
[2022-10-10] MEDS: LISINOPRIL/HCTZ 20-12.5 MG TABLET PO SCH (08:56)
[2022-10-10] MEDS: FLUCONAZOLE 100 MG TABLET PO SCH (08:56)
[2022-10-10] MEDS: OSELTAMIVIR 75 MG CAPSULE PO SCH (08:56)
[2022-10-10] MEDS: FUROSEMIDE 40 MG TABLET PO SCH (08:56)
[2022-10-10] MEDS: cefTRIAXone 1,000 MG in SODIUM CHLORIDE 0.9% 100 ML IV SCH (09:08)
[2022-10-10] MEDS: PANTOPRAZOLE 40 MG VIAL IV SCH (09:12)
[2022-10-10] MEDS: INSULIN GLARGINE 100 UNIT/ML SUBCUT SCH (09:16)
== END 2022-10-10 11:12 | disposition home or self-care (01) ==
LOC: N.2E 17:19 → N.ED 17:19 → N.2E 10-08 02:46
PROVIDERS: ADMIT Internal Medicine; ATTEND Internal Medicine

== ENCOUNTER 2022-10-12 12:43 | Observation (INO) ==
[2022-10-12] MEDS ORDERED: ALUM/MAG/SIMETH/LIDO VISC 1:1 30 ML BOTTLE PO STA (13:03)
[2022-10-12] MEDS ORDERED: ASPIRIN 325 MG TABLET PO STA (13:03)
[2022-10-12] MEDS ORDERED: ONDANSETRON 4 MG/2 ML VIAL IV ONE (13:03)
[2022-10-12] MEDS ORDERED: PANTOPRAZOLE 40 MG VIAL IV STA (13:04)
[2022-10-12 13:08] LABS: Basophils % 0.4 % (0.0-0.8); Eosinophils # 0.1 10*3/uL (0.0-0.87); Eosinophils % 0.9 % (0.00-10.9); Hematocrit 31.2 VOL% (35.7-47.0); Immature Granulocytes % 0.4 %; Immature Granulocytes Absolute 0.03 #; Lymphocytes # 1.6 10*3/uL (1.4-4.0); Lymphocytes % 20.7 % (21.3-54.2); Mean Corpuscular HGB Conc 32.1 GM/DL (32-36); Mean Corpuscular Volume 73.2 FL (87-102); Monocytes # 0.5 10*3/uL (0.11-0.8); Monocytes % 6.1 % (1.7-12.7); Neutrophils % 71.5 % (38.7-73.9); Platelet Count 316 T/CUMM (130-400); Red Blood Count 4.26 MC/CUMM (3.8-5.5); White Blood Count 7.7 T/CUMM (4-12)
[2022-10-12 13:17] LABS: PT Patient Result 10.8 SECS (10.1-12.1)
[2022-10-12 13:40] LABS: Albumin 3.2 G/DL (3.4-5.0); Bilirubin,Total 0.6 MG/DL (0.20-1.00); Calcium 9.5 MG/DL (8.5-10.1); Osmolality,Calculated 274.8 MOS/KG (273-304); Potassium 3.6 MMOL/L (3.5-5.1); Total Protein 7.5 G/DL (6.4-8.2)
[2022-10-12] MEDS ORDERED: SODIUM CHLORIDE 0.9% 1,000 ML IV STA (15:17)
[2022-10-12] MEDS ORDERED: BISACODYL 5 MG TABLET PO PRN (15:32)
[2022-10-12] MEDS ORDERED: MORPHINE 2 MG/1 ML SYRINGE IV PRN (15:32)
[2022-10-12] MEDS ORDERED: PROMETHAZINE 25 MG/1 ML VIAL IM PRN (15:32)
[2022-10-12] MEDS ORDERED: ONDANSETRON 4 MG/2 ML VIAL IV PRN (15:32)
[2022-10-12] MEDS ORDERED: NALOXONE 0.4 MG/ML VIAL IV PRN (15:32)
[2022-10-12] MEDS ORDERED: ACETAMINOPHEN 325 MG TABLET PO PRN (15:32)
[2022-10-12] MEDS: SODIUM CHLORIDE 0.9% 1,000 ML IV SCH (17:50)
[2022-10-12] MEDS ORDERED: traMADol 50 MG TABLET PO PRN (18:55)
[2022-10-12] MEDS: KETOROLAC 15 MG/1 ML VIAL IV SCH (20:31)
[2022-10-12] MEDS: GABAPENTIN 400 MG CAPSULE PO SCH (20:32)
[2022-10-12] MEDS: DOCUSATE SODIUM 100 MG CAPSULE PO SCH (20:33)
[2022-10-12] MEDS: LISINOPRIL/HCTZ 20-12.5 MG TABLET PO SCH (20:33)
[2022-10-12] MEDS ORDERED: ENOXAPARIN 40 MG/0.4 ML SYRINGE SUBCUT SCH (21:00)
[2022-10-12] MEDS: INSULIN REGULAR 100 UNIT/ML SUBCUT SCH (23:09)
[2022-10-12] MEDS: METOCLOPRAMIDE 10 MG/2 ML VIAL IV SCH (23:47)
[2022-10-13] MEDS ORDERED: cefTRIAXone 1,000 MG in SODIUM CHLORIDE 0.9% 100 ML IV SCH
[2022-10-13] MEDS: KETOROLAC 15 MG/1 ML VIAL IV SCH ×3 (02:48→16:02)
[2022-10-13 04:54] LABS: Basophils % 0.1 % (0.0-0.8); Eosinophils % 0.4 % (0.00-10.9); Hematocrit 27.9 VOL% (35.7-47.0); Hemoglobin 8.8 GM/DL (12.0-16.0); Immature Granulocytes % 0.1 %; Immature Granulocytes Absolute 0.01 #; Lymphocytes # 1.6 10*3/uL (1.4-4.0); Lymphocytes % 21.8 % (21.3-54.2); Mean Corpuscular HGB Conc 31.5 GM/DL (32-36); Mean Corpuscular Volume 74.4 FL (87-102); Mean Platelet Volume 9.7 FL (9.6-12.0); Monocytes # 0.6 10*3/uL (0.11-0.8); Monocytes % 8.2 % (1.7-12.7); Neutrophils % 69.4 % (38.7-73.9); Platelet Count 260 T/CUMM (130-400); Red Blood Count 3.75 MC/CUMM (3.8-5.5); Red Cell Distribution Width 15.7 % (9.3-17.3); White Blood Count 7.3 T/CUMM (4-12)
[2022-10-13 05:11] LABS: Albumin 2.5 G/DL (3.4-5.0); Bilirubin,Total 0.5 MG/DL (0.20-1.00); Calcium 8.9 MG/DL (8.5-10.1); Osmolality,Calculated 281.4 MOS/KG (273-304); Potassium 3.1 MMOL/L (3.5-5.1); Total Protein 6.9 G/DL (6.4-8.2)
[2022-10-13] MEDS: METOCLOPRAMIDE 10 MG/2 ML VIAL IV SCH ×3 (05:42→16:29)
[2022-10-13] MEDS: INSULIN REGULAR 100 UNIT/ML SUBCUT SCH ×3 (08:47→16:07)
[2022-10-13] MEDS: SODIUM CHLORIDE 0.9% 1,000 ML IV SCH (08:48)
[2022-10-13] MEDS ORDERED: PANTOPRAZOLE 40 MG TABLET PO SCH (09:00)
[2022-10-13] MEDS ORDERED: carvediloL 25 MG TABLET PO SCH (09:00)
[2022-10-13] MEDS ORDERED: BISACODYL 5 MG TABLET PO SCH (09:00)
[2022-10-13] MEDS ORDERED: metOLazone 2.5 MG TABLET PO SCH (09:00)
[2022-10-13] MEDS ORDERED: FUROSEMIDE 40 MG/4 ML VIAL IV SCH (09:00)
[2022-10-13] MEDS ORDERED: carvediloL 12.5 MG TABLET PO SCH (09:00)
[2022-10-13] MEDS ORDERED: POTASSIUM CHLORIDE 20 MEQ TABLET PO SCH (09:00)
[2022-10-13] MEDS ORDERED: LORATADINE 10 MG TABLET PO SCH (09:00)
[2022-10-13] MEDS: GABAPENTIN 400 MG CAPSULE PO SCH ×2 (09:32→16:02)
[2022-10-13] MEDS: DOCUSATE SODIUM 100 MG CAPSULE PO SCH (09:32)
[2022-10-13] MEDS: LISINOPRIL/HCTZ 20-12.5 MG TABLET PO SCH (09:33)
[2022-10-13] MEDS ORDERED: POTASSIUM CHLORIDE 20 MEQ TABLET PO ONE (15:34)
[2022-10-13 17:06] VITALS: BP 147/80
== END 2022-10-13 17:22 | disposition home or self-care (01) ==
LOC: N.EDINP 12:43 → N.ED 12:43 → N.2E 16:25
PROVIDERS: ADMIT Internal Medicine; ATTEND Internal Medicine